=== PATIENT | male | born 1975 | race Two or more races ===

== ENCOUNTER 2018-07-24 18:43 | Inpatient (IN) | payer OTHER ==
[~2018-07-24] VITALS: Ht 172.7 cm; Wt 71.2 kg
--- NOTE | 2018-07-24 18:46 | NUR ---
PT STEVEN FROM [facility] FOR [facility], ACTING BIZARRE, PT NOT ANSWERING QUESTIONS APPROPRIETLY, RESPIRATIONS EVEN AND UNLABORED, NO SOB, NAD NOTED, VSS, PT ON MONITOR, PENDING ER PROVIDER FARTUN
[2018-07-24] MEDS ORDERED: OLANZAPINE 10 MG VIAL IM ONE ×4 (19:00→23:32)
[2018-07-24] MEDS ORDERED: INSU100I26 SQ (19:13)
[2018-07-24] MEDS ORDERED: MINO100T PO (19:13)
[2018-07-24] MEDS ORDERED: INSU100I14 SQ (19:13)
[2018-07-24] MEDS ORDERED: PREG100C PO (19:13)
[2018-07-24] MEDS ORDERED: ONDA4TAB5 PO (19:13)
[2018-07-24] MEDS ORDERED: APIX5TAB PO (19:13)
[2018-07-24 19:17] LABS: BASOPHILS # (AUTO) 0.1 /CMM (0.0-0.2); BASOPHILS % (AUTO) 0.7 % (0.0-2.0); EOSINOPHILS % (AUTO) 1.3 % (0.0-6.0); HEMATOCRIT 31 % (39-51); HEMOGLOBIN 10.4 g/dL (13.5-17.5); LYMPHOCYTES # (AUTO) 0.9 /CMM (0.8-4.8); LYMPHOCYTES % (AUTO) 11.7 % (20.0-44.0); MEAN CORPUSCULAR HGB CONC 34 g/dl (31.0-36.0); MEAN CORPUSCULAR VOLUME 82 fL (80-96); MONOCYTES # (AUTO) 0.8 /CMM (0.1-1.30); MONOCYTES % (AUTO) 10.2 % (2.0-12.0); NEUTROPHILS # (AUTO) 6.1 /CMM (1.8-8.9); NEUTROPHILS % (AUTO) 76.1 % (43.0-81.0); PLATELET COUNT (AUTO) 530 /CMM (150-450); RED BLOOD CELL COUNT(AUTO) 3.76 MIL/uL (4.5-6.0)
[2018-07-24 19:28] LABS: CARBON DIOXIDE 22 mmol/L (21-32); CHLORIDE 97 mmol/L (98-107); CREATININE 1.1 mg/dL (0.6-1.3); GLUCOSE 143 mg/dL (74-106); POTASSIUM 4.1 mmol/L (3.5-5.1); SODIUM SERUM 134 mmol/L (136-145); UREA NITROGEN, BLOOD 31 mg/dL (7-18)
[2018-07-24] MEDS ORDERED: PIPERACILLIN /TAZOBACTAM 3.375 G in IV D5W 50 ML IV ONE (19:30)
[2018-07-24] MEDS ORDERED: VANCOMYCIN 1 GM in IV D5W 250 ML IV ONE (19:30)
--- NOTE | 2018-07-24 19:30 | NUR ---
PT AGITATED AND VERY RESTLESS, DR. COSTELLO WITH NEW ORDERS FOR ZYPREXA IM.
[2018-07-24 19:33] LABS: ALANINE AMINOTRANSFERASE 43 U/L (12-78); ALBUMIN 3.1 g/dL (3.4-5.0); ALCOHOL, BLOOD < 3 mg/dL (0-0); ALKALINE PHOSPHATASE 142 U/L (46-116); ASPARTATE AMINOTRANSFERASE 29 U/L (15-37); BILIRUBIN,DIRECT 0.2 mg/dL (0.0-0.2); BILIRUBIN,TOTAL 0.6 mg/dL (0.2-1.0); SALICYLATE 3.6 mg/dL (2.8-20.0); TOTAL PROTEIN, SERUM 8.9 g/dL (6.4-8.2)
[2018-07-24] MEDS ORDERED: VANCOMYCIN 1 GM VIAL ONE (19:33)
[2018-07-24] MEDS ORDERED: PIPERACILLIN /TAZOBACTAM 3.375 G VIAL IV ONE (19:33)
[2018-07-24 19:34] LABS: ACETAMINOPHEN < 2 ug/ml (10-30)
--- NOTE | 2018-07-24 19:40 | NUR ---
PT PULLED OUT IV, RESTARTED NEW PIV ON LEFT FOREARM
--- NOTE | 2018-07-24 23:30 | NUR ---
CALLED DR. GASTON FOR ADMISSION AND STATES "[employer] DOES NOT COVER TEST TUBE MAKER; SO CALL STRUCTURAL STEEL FITTER AND ASK HER TO FIND OUT WHERE THE PT HAD SURGERY SO THAT HE CAN GO BACK THERE". CM CALLED, MESSAGE LEFT AND DR. DINH NOTIFIED.
--- NOTE | 2018-07-24 23:41 | NUR ---
PT STILL VERY RESTLESS AT THIS TIME, DR DINH AWARE, WITH NEW ORDERS FOR ZYPREXA IM 2ND DOSE GIVEN
--- NOTE | 2018-07-25 00:03 | NUR ---
NURSING SUP CALLED; 323-2
--- NOTE | 2018-07-25 00:24 | NUR ---
PT CALM AND COOPERATIVE AT THIS TIME. PT STILL UNABLE TO GIVE URINE SAMPLE
--- NOTE | 2018-07-25 00:25 | NUR ---
[facility] MOTOR BLOCK MECHANIC CALLED BACK AND STATED "MY EQUIP MAINT ENG THE CHEMICALS FERMENTATION OPERATOR STATES "THE [facility] INSURANCE WITH 100% PAY FOR BRIDGER RICK PHLEBOTOMY TECH". DR. GASTON NOTIFIED AND ABLE TO ADMIT PT.
--- NOTE | 2018-07-25 00:26 | NUR ---
CONTENT ENGINEER CALLED [facility].
--- NOTE | 2018-07-25 00:41 | NUR ---
REPORT GIVEN TO JACINTO FAN FOR AIDA
--- NOTE | 2018-07-25 01:06 | NUR ---
RN NOTES: UNABLE TO OBTAIN VITAL SIGN PT REFUSING, AND APPEARS READY TO HIT STAFF WHEN TOUCH
--- NOTE | 2018-07-25 01:11 | NUR ---
PT TRANSFERRED TO BED 323-2 VIA ACLS PROTOCOL
[2018-07-25] MEDS ORDERED: *INSULIN REGULAR(HUMULIN R)HUM 100 UNIT/ML VIAL SQ PRN (01:30)
[2018-07-25] MEDS ORDERED: ACETAMINOPHEN 325 MG TABLET PO PRN (01:30)
[2018-07-25] MEDS ORDERED: DEXTROSE 50%-WATER 50 ML DISP.SYRIN IV PRN (01:30)
[2018-07-25] MEDS ORDERED: HYDROMORPHONE 1 MG/1 ML DISP.SYRIN IV PRN (01:30)
[2018-07-25] MEDS ORDERED: ALPRAZOLAM 0.25 MG TABLET PO PRN (01:30)
[2018-07-25] MEDS ORDERED: ONDANSETRON HCL/PF 4 MG/2 ML VIAL IV PRN (01:30)
--- NOTE | 2018-07-25 01:45 | NUR ---
RN NOTES: RECEIVED CALL FROM YONAS RANGEL PER DR GASTON, TO CONTINUE ALL HOME MEDS
[2018-07-25] MEDS ORDERED: PIPERACILLIN /TAZOBACTAM 3.375 G in IV D5W 50 ML IV ONE (02:00)
--- NOTE | 2018-07-25 02:00 | NUR ---
RN NOTES: UNABLE TO OBTAIN PERTINENT INFORMATION,PT UNCOOPERATIVE, REFUSED TO ANSWER QUESTIONS, COVERED HIS FACE WITH BLANKET, ALL INFORMATION USED FOR FILLING/COMPLETING ADMISSION DOCUMENTATION OBTAINED FROM ER REPORT/SUMMARY REPORT. MANUAL MACHINIST MADE AWARE
--- NOTE | 2018-07-25 02:01 | NUR ---
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 INFORMED THAT WHEN PT RECEIVED IN THE UNIT THESE TWO WEREN'T FOUND, PER JACKSON HE WILL CHECK IN ER.
[2018-07-25] MEDS ORDERED: PIPERACILLIN /TAZOBACTAM 3.375 G VIAL IV ONE (02:48)
--- NOTE | 2018-07-25 03:19 | NUR ---
MSRN ABLE TO CONNECT PATIENT TO [facility]OS[facility]. CAN BE COMBATIVE ANY MINUTE. CLOSELY WATCHED.
--- NOTE | 2018-07-25 06:49 | NUR ---
MSRN REFUSED TO BE DISTURBED.. RESISTIVE TENDS TO BE COMBATIVE, UNCOOPERATIVE AT THIS TIME. UNABLE TO CHECK BLOOD SUGAR. WILL ENDORSE TO INCOMING RN
--- NOTE | 2018-07-25 07:02 | NUR ---
MS RN OPENING NOTE RECEIVED PATIENT IN BED. SLEEPING, EASILY AROUSED WITH VERBAL STIMULI. ON ROOM AIR. IN NO APPARENT DISTRESS OR DISCOMFORT AT THIS TIME. RESPIRATIONS EVEN AND UNLABORED. PATIENT GOT AGITATED FROM BEING WOKEN UP. UNCOOPERATIVE. DOES NOT ANSWER TO QUESTIONS. PATIENT DOES NOT ALLOW ASSESSMENT. BECOMES COMBATIVE. PER NIGHT RN PATIENT HAS L FA 20G IVC, SL. UNABLE TO ASSESS PATENCY. SAFETY MEASURES IN PLACE, BED IN LOW LOCKED POSITION, SIDE RAILS UP X2, CALL LIGHT WITHIN EASY REACH. WILL CONTINUE TO MONITOR.
[2018-07-25] MEDS: BLOOD SUGAR DIAGNOSTIC 1 EACH STRIP VI SCH ×4 (07:30→21:15)
[2018-07-25] MEDS ORDERED: FEE PK DOSING 1 MIN EA MC ONE (07:41)
[2018-07-25 08:00] VITALS: BP 106/62
[2018-07-25] MEDS ORDERED: VANCOMYCIN 1 GM in IV D5W 250 ML IV ONE (08:00)
[2018-07-25] MEDS ORDERED: APIXABAN 5 MG TABLET PO SCH (09:00)
--- NOTE | 2018-07-25 09:00 | NUR ---
PER DR. GASTON OBTAIN PSYCHIATRIC CONSULTATION, OBTAIN STAGE DRIVER CONSULTATION. PER DR. GASTON PATIENT WILL BE SEEN BY APPLICATION INTEGRATION SPECIALIST. INFORMED THE PHYSICIAN THAT PATIENT IS NON-COMPLIANT WITH TREATMENT AND PLAN OF CARE. NO FURTHER ORDERS REGARDING THAT MATTER. WILL CONTINUE TO MONITOR AT THIS TIME.
[2018-07-25] MEDS: PREGABALIN 100 MG CAPSULE PO SCH ×3 (09:19→17:00)
[2018-07-25] MEDS: ELIQUIS 5 MG PO SCH ×2 (09:19→17:00)
--- NOTE | 2018-07-25 09:30 | NUR ---
FAXED PATIENT'S FACE SHEET TO [facility] FOR PSYCHIATRIC EVALUATION. PATIENT WILL BE SEEN BY DR. LEAL. AWAITING EVALUATION AT THIS TIME.
--- NOTE | 2018-07-25 09:30 | NUR ---
PATIENT WAS NOTED TO HAVE SOME BLEEDING FROM RIGHT FOOT WOUND. NO DRESSING PRESENT CURRENTLY PATIENT REFUSED EARLIER. PATIENT ONLY ALLOWED TO CLEANED WITH NS, APPLY GAUZE AND WRAP WITH KERLIX. WOUND CONSULT REQUESTED. AWAITING PODIATRY CONSULT AT THIS TIME.
[2018-07-25] MEDS: PIPERACILLIN /TAZOBACTAM 3.375 G in IV D5W 50 ML IV SCH ×3 (10:57→23:29)
[2018-07-25] MEDS: INSULIN ASPART/LISPRO 100 UNIT/ML CARTRIDGE SQ SCH ×2 (11:41→17:05)
--- NOTE | 2018-07-25 12:00 | NUR ---
PATIENT REFUSED ACCU-CHECK. UNABLE TO ADMINISTER INSULIN AT THIS TIME. RISKS AND BENEFITS EXPLAINED. PATIENT HAS POOR CONCENTRATION, UNCOOPERATIVE. KEEPS CUTTING OFF AND REDIRECTING THE CONVERSATION TO PERSONAL MATTERS REGARDING HIS CREDIT CARD. PATIENT GET AGITATED AND AT TIMES COMBATIVE. NON-COMPLIANT AND UNCOOPERATIVE WITH TREATMENT. ALLOWS SOME TREATMENT SELECTIVELY. MD WAS MADE AWARE OF PATIENT.S BEHAVIOR. WILL CONTINUE TO MONITOR AT THIS TIME.
--- NOTE | 2018-07-25 12:00 | NUR ---
PATIENT REFUSED ACCU-CHECK. PATIENT IS NON COMPLIANT WITH TREATMENT PLAN. REFUSES TO BE CLEANED AND ASSESSED. REFUSES PHOTOGRAPHS. STATES HE DOES NOT NEED IT HE IS GOING TO GO SOON. ALL RISKS AND BENEFITS EXPLAINED. MD AWARE. WEB CONTENT WRITER AWARE OF PATIENT'S DESIRE TO BE TRANSFERRED TO A DIFFERENT HOSPITAL. PATIENT DOES NOT PROVIDE A SPECIFIC REASON TO WHY HE WANTS TO LEAVE. WILL CONTINUE TO MONITOR AT THIS TIME.
[2018-07-25] MEDS: VANCOMYCIN 0.75 GM in IV D5W 250 ML IV SCH (15:23)
[2018-07-25 16:00] VITALS: BP 109/68
[2018-07-25] MEDS: INSULIN REGULAR, HUMAN 100 UNIT/ML 3 ML VIAL SQ PRN (17:03)
--- NOTE | 2018-07-25 18:30 | NUR ---
MS RN CLOSING NOTE PATIENT IN BED. ALERT ORIENTED X2-3. ON ROOM AIR. IN NO APPARENT DISTRESS OR DISCOMFORT AT THIS TIME. RESPIRATIONS EVEN AND UNLABORED. DENIES PAIN AND SOB. PATIENT IS NON-COMPLIANT AND UNCOOPERATIVE. DOES NOT ANSWER TO QUESTIONS. KEEPS TAKING ABOUT HIS PERSONAL ISSUES. PATIENT DOES NOT ALLOW FULL BODY ASSESSMENT, GETS AGITATED AND COMBATIVE, TRYING TO KICK AND HIT THE STAFF. PATIENT HAS L FA 20G IVC, SL. PATENT AND INTACT. ALLOWS CARE ONLY WHEN HE FEELS LIKE IT. FREQUENT MOOD SWINGS AND BEHAVIORAL ESCALATIONS OBSERVED. PATIENT KEPT COMFORTABLE, SAFETY MEASURES IN PLACE, BED IN LOW LOCKED POSITION, SIDE RAILS UP X2, CALL LIGHT WITHIN EASY REACH. WILL ENDORSE TO PM NURSE FOR AIDA.
--- NOTE | 2018-07-25 19:10 | NUR ---
PATIENT REPORTED HAVING PAIN IN RIGHT FOOT 01/26. ASKING FOR PAIN MEDICATION. PULLED OUT AND SCANNED NORCO 5MG-325MG TO ADMINISTER FOR PAIN MANAGEMENT. WHEN TOOK THE MEDICATION TO THE PATIENT HE REFUSED, STATING HE DOES NOT WANT TO TAKE IT. MEDICATION WAS WASTED PER PROTOCOL, RECORDED WASTE IN OMNICELL AND WAS WITNESSED WITH KASSIE CASEY.
[2018-07-25] MEDS: HYDROCODONE/APAP 5/325MG 1 EACH TABLET PO PRN ×3 (19:14→21:12)
--- NOTE | 2018-07-25 19:45 | NUR ---
RN OPENING NOTES RECEIVED REPORT FROM DAYSHIFT JACINTO HINSON. FOUND Pt AWAKE, RESTING IN BED. NO S/S OF ACUTE DISTRESS OR SOB NOTED. RESPIRATIONS EVEN AND UNLABORED. Pt IS A/OX3, VERBAL, ABLE TO MAKE NEEDS KNOWN; PER REPORT IS EASILY AGITATED AND HAS BEEN UNCOOPERATIVE SINCE ADMISSION AND HAS BEEN REFUSING CARE AND SKIN ASSESSMENT AND PICTURES. IV ACCESS ON LFA #20G, SL. SAFETY MEASURES IN PLACE. BED LOW, LOCKED, HOB ELEVATED, SIDE RAILS UP, CALL LIGHT AND BEDSIDE TABLE WITHIN REACH. WILL CONTINUE TO MONITOR Pt's CONDITION AND SAFETY THROUGHOUT THE NIGHT.
[2018-07-25 20:00] VITALS: BP 124/76
[2018-07-25] MEDS: INSULIN GLARGINE, 100 UNIT/ML CARTRIDGE SQ SCH (21:32)
--- NOTE | 2018-07-25 22:00 | NUR ---
RN NOTES HS ACCUCHECK 156. ADMINISTERED SCHEDULED DOSE OF LANTUS 22UN. Pt DID NOT WANT ADDITIONAL COVERAGE.
--- NOTE | 2018-07-25 23:05 | NUR ---
RN NOTES Pt IS BECOMING MORE COMPLIANT. ALLOWED FOR PICTURE TO BE TAKEN OF HIS RT FOOT WOUND. WAS ABLE TO COLLECT WOUND CULTURE OF Pt's RT FOOT WOUND. CLEANED RT FOOT WITH STERILE NS. COVERED WITH ABD PAD & WRAPPED FOOT WITH KERLIX. Pt PROVIDED HIS OWN TRICIA WRAP BANDAGE THAT HE ALSO WANTED WRAPPED AROUND THE DRESSING. TOLD DIRECTIONAL DRILLER THAT Pt IS MORE COMPLIANT. WILL TRY FOR PODIATRY AND WOUND CONSULT AGAIN.
--- NOTE | 2018-07-26 00:58 | NUR ---
RN NOTES Pt IS NOW REQUESTING FOR A SLEEPING PILL & IS REQUESTING FOR ATIVAN INSTEAD OF XANAX. SPOKE WITH DR GASTON ON THE PHONE. GAVE ORDER FOR AMBIEN 5MG PO HS, AND ATIVAN 1MG PO Q6H PRN. WILL DC XANAX.
[2018-07-26] MEDS: VANCOMYCIN 0.75 GM in IV D5W 250 ML IV SCH ×2 (01:06→08:12)
[2018-07-26] MEDS ORDERED: ZOLPIDEM TARTRATE 5 MG TABLET PO PRN (01:30)
[2018-07-26] MEDS ORDERED: LORAZEPAM 1 MG TABLET PO PRN (01:30)
[2018-07-26] MEDS: PIPERACILLIN /TAZOBACTAM 3.375 G in IV D5W 50 ML IV SCH ×4 (06:08→23:10)
[2018-07-26] MEDS: INSULIN ASPART/LISPRO 100 UNIT/ML CARTRIDGE SQ SCH ×3 (06:45→17:59)
--- NOTE | 2018-07-26 06:45 | NUR ---
RN NOTES AC ACCUCHECK BG 253. ADMINISTERED SCHEDULED NOVOLOG 3UN AND GAVE ADDITIONAL INSULIN COVERAGE OF 9UN REGULAR INSULIN. Pt IS EATING WELL.
[2018-07-26] MEDS: INSULIN REGULAR, HUMAN 100 UNIT/ML 3 ML VIAL SQ PRN (06:48)
[2018-07-26] MEDS: BLOOD SUGAR DIAGNOSTIC 1 EACH STRIP VI SCH ×4 (06:57→22:00)
--- NOTE | 2018-07-26 07:20 | NUR ---
PT RECEIVED A&0X3, PLEASANT AND ENGAGING BUT UNINTERESTED IN DISCUSSING CARE, RESTING IN BED PLAYING ON PHONE, PT TOLERATING ROOM AIR WITHOUT DISTRESS, PT REPORTS MODERATE PAIN TO R FOOT, DRESSING CLEAN AND INTACT. PT IVC AT L FA DISCONNECTED BY PT TO USE BATHROOM, IV RESTARTED AND PT REQUESTED TO CALL FOR ASSISTANCE. PT BED IN LOWEST LOCKED POSITION WITH HANDRAILSX2 AND CALL FLEMING WITHIN REACH. PT REFUSING FURTHER SKIN ASSESSMENT BUT DENIES SYMPTOMS, PT STATES OK TO SEE MD R/T FOOT CARE. PT WITH COMPLAINT AT THIS TIME.
--- NOTE | 2018-07-26 07:38 | NUR ---
RN CLOSING NOTES NO SIGNIFICANT CHANGES IN Pt's CONDITION. Pt IS STABLE AT THIS TIME. NO S/S OF ACUTE DISTRESS OR SOB NOTED DURING THE NIGHT. ALL NEEDS MET AND ATTENDED TO. Pt IS AWAKE RESTING IN BED, RESPIRATIONS EVEN AND UNLABORED. SAFETY MEASURES IN PLACE. Pt IS BECOMING MORE COMPLIANT WITH CARE. ENDORSED TO DAYSHIFT RN FOR Pt's AIDA.
[2018-07-26 07:52] LABS: EOSINOPHILS % (AUTO) 6.8 % (0.0-6.0); HEMATOCRIT 27 % (39-51); HEMOGLOBIN 9.2 g/dL (13.5-17.5); LYMPHOCYTES # (AUTO) 1.1 /CMM (0.8-4.8); LYMPHOCYTES % (AUTO) 25.5 % (20.0-44.0); MEAN CORPUSCULAR HGB CONC 34 g/dl (31.0-36.0); MEAN CORPUSCULAR VOLUME 82 fL (80-96); MONOCYTES # (AUTO) 0.6 /CMM (0.1-1.30); NEUTROPHILS # (AUTO) 2.2 /CMM (1.8-8.9); NEUTROPHILS % (AUTO) 52.7 % (43.0-81.0); PLATELET COUNT (AUTO) 371 /CMM (150-450); RED BLOOD CELL COUNT(AUTO) 3.29 MIL/uL (4.5-6.0); WHITE BLOOD COUNT (AUTO) 4.2 K/uL (4.3-11.0)
[2018-07-26 07:53] LABS: CALCIUM, SERUM 8.1 mg/dL (8.5-10.1); CREATININE 1.1 mg/dL (0.6-1.3); POTASSIUM 3.8 mmol/L (3.5-5.1)
[2018-07-26 08:00] VITALS: BP 127/78
[2018-07-26] MEDS: ELIQUIS 5 MG PO SCH ×2 (08:19→16:20)
[2018-07-26] MEDS: HYDROMORPHONE INJ 2 MG/ML DISP.SYRIN IV PRN ×3 (08:20→18:32)
[2018-07-26] MEDS: PREGABALIN 100 MG CAPSULE PO SCH ×3 (08:20→16:16)
[2018-07-26] MEDS: OLANZAPINE 5 MG TABLET PO SCH ×2 (09:00→16:16)
[2018-07-26] MEDS: HYDROCODONE/APAP 5/325MG 1 EACH TABLET PO PRN ×3 (10:31→20:19)
--- NOTE | 2018-07-26 10:56 | NUR ---
MSRNataliia. PT WITH COMPLAINT FO NECK PAIN, PRN TYLENOL AND HEAT PACK APPLIED. Addendum: 07/26/18 at 1132 by OMAIRA MORSE RN WRONG PT
--- NOTE | 2018-07-26 10:59 | NUR ---
PT WITH MULTIPLE CONCERNS R/T TO HOUSING. SW PRESENT FOR RVX2. Addendum: 07/26/18 at 1134 by OMAIRA MORSE RN WRONG PT
--- NOTE | 2018-07-26 12:04 | NUR ---
Social service consult requested by Dr. Berger for homelessness. Pt. is a 43 year old male who was admitted to [facility] for osteomyelitis of right foot. Pt. is alert and oriented x 4. Pt. is not very cooperative with SW. Pt. states, "I am going to a half-way facility for rehab for my foot, if you cannot help with that, then I do not want to talk to you." SW informed pt. she will relay his message to the employment case manager.
[2018-07-26 16:00] VITALS: BP_SYST 127; BP_SYST 130; BP_DIAS 70; BP_DIAS 78
[2018-07-26] MEDS: VANCOMYCIN 500 MG in IV D5W 100 ML IV SCH (16:15)
--- NOTE | 2018-07-26 18:30 | NUR ---
PT REMAINS REFUSING SLIDING SCALE.
--- NOTE | 2018-07-26 18:37 | NUR ---
PT REMAINS A&0X3, COOPERATIVE, TALKATIVE BUT NEGATIVE TOWARDS CARE, OFTEN IRRITABLE AND SHOUTING ON PHONE. PT TOLERATING ROOM AIR WITHOUT DISTRESS. PT REPORTS ADEQUATE PAIN MANAGEMENT DURING SHIFT. R FOOT WOUND CARE COMPLETED BY MD, DRESSING CLEAN AND INTACT. PT IVC AT L FA INTACT AND SALINE FLUSH PATENT. PT BED IN LOWEST LOCKED POSITION WITH HANDRAILSX2 AND CALL FLEMING WITHIN REACH. ALL DAY NURSE DUTIES ATTENDED TO AND PT IS WITHOUT COMPLAINT AT THIS TIME. WILL ENDORSE TO NIGHT NURSE AT BEDSIDE FOR AIDA.
[2018-07-26 20:00] VITALS: BP 117/72
--- NOTE | 2018-07-26 20:46 | NUR ---
MS RN NOTES RECEIVED PATIENT AWAKE IN BED AND WATCHING TV WITH NO DISTRESS NOTED. CALL LIGHT WITHIN REACH. NO C/O PAIN OR DISCOMFORT. PERIPHERAL IV INTACT AND PATENT. BED IN LOW LOCK SETTING. ALL BELONGINGS KEPT NEAR BEDSIDE. WILL CONTINUE TO MONITOR.
[2018-07-26] MEDS: INSULIN GLARGINE, 100 UNIT/ML CARTRIDGE SQ SCH (22:00)
[2018-07-27] MEDS: VANCOMYCIN 500 MG in IV D5W 100 ML IV SCH ×4 (00:09→23:37)
[2018-07-27] MEDS: HYDROMORPHONE INJ 2 MG/ML DISP.SYRIN IV PRN ×3 (04:48→16:42)
[2018-07-27] MEDS: PIPERACILLIN /TAZOBACTAM 3.375 G in IV D5W 50 ML IV SCH ×4 (05:16→23:16)
[2018-07-27 06:29] LABS: POTASSIUM 4.4 mmol/L (3.5-5.1)
[2018-07-27] MEDS: INSULIN REGULAR, HUMAN 100 UNIT/ML 3 ML VIAL SQ PRN ×2 (06:29→17:27)
[2018-07-27] MEDS: INSULIN ASPART/LISPRO 100 UNIT/ML CARTRIDGE SQ SCH ×3 (06:30→17:23)
--- NOTE | 2018-07-27 06:55 | NUR ---
MS RN CLOSING NOTES PATIENT AWAKE IN BED AND WATCHING TV WITH NO DISTRESS NOTED. CALL LIGHT WITHIN REACH. NO FURTHER C/O PAIN OR DISCOMFORT. PATIENT REFUSED HS SUGAR CHECK AND LANTUS DESPITE EXPLANATION OF RISKS/BENEFITS X3. VITALS REMAIN WNL. BED IN LOW LOCK SETTING. ALL BELONGINGS KEPT NEAR BEDSIDE. WILL ENDORSE TO ONCOMING SHIFT.
--- NOTE | 2018-07-27 07:30 | NUR ---
PT REMAINS A&0X3, NEGATIVE TOWARDS CARE. PT TOLERATING ROOM AIR WITHOUT DISTRESS. PT REPORTS R FOOT PAIN 10/10, DRESSING CLEAN AND INTACT. PT IVC AT L FA INTACT AND SALINE FLUSH PATENT. PT BED IN LOWEST LOCKED POSITION WITH HANDRAILSX2 AND CALL FLEMING WITHIN REACH. PT BRIEFED ON POC AND IS WITHOUT CONCERN OR COMPLAINT AT THIS TIME.
[2018-07-27] MEDS: BLOOD SUGAR DIAGNOSTIC 1 EACH STRIP VI SCH ×4 (07:45→21:51)
[2018-07-27 08:00] VITALS: BP 114/74
[2018-07-27] MEDS: OLANZAPINE 5 MG TABLET PO SCH ×2 (08:14→16:42)
[2018-07-27] MEDS: HYDROCODONE/APAP 5/325MG 1 EACH TABLET PO PRN (08:14)
[2018-07-27] MEDS: PREGABALIN 100 MG CAPSULE PO SCH ×3 (08:14→16:42)
[2018-07-27] MEDS: ELIQUIS 5 MG PO SCH ×2 (08:16→16:41)
--- NOTE | 2018-07-27 08:21 | NUR ---
WOUND CARE CONSULT WOUND CARE RECEIVED CONSULT FOR RIGHT FOOT OM. WOUND CARE WILL DEFER CONSULT AND TREATMENT PLAN TO DPM DR MARTINEZ WHO IS CURRENTLY FOLLOWING THIS PATIENT. PT WITH HILARY AT 18. ALL PRESSURE ULCER PREVENTION MEASURES ARE NOTED TO BE IN PLACE AT THIS TIME. WILL SEE PRN.
--- NOTE | 2018-07-27 12:00 | NUR ---
PT ORDERED VAPORIZER PRODUCTS TO BE DELIVERED. ITEMS CONTAINING NICOTINE CONFISCATED AND SUBMITTED TO PHARMACY PER CHARGE NURSE [id number]. PT DENIES HAVE VAPORIZER. PT YELLING AND HOSTILE TOWARDS STAFF.
[2018-07-27 16:00] VITALS: BP 149/87
[2018-07-27] MEDS: LACTOBACILLUS RHAMNOSUS GG 1 EACH CAP.SPRINK PO SCH (16:42)
--- NOTE | 2018-07-27 17:30 | NUR ---
PT REQUESTING TO GO SMOKE WITH RE ETCHER, PT TOLD HE MUST GIVE STAFF THE VAPORIZER AFTER. PT AGREEABLE.
--- NOTE | 2018-07-27 18:00 | NUR ---
PT PROVIDED VAPORIZER, BAGGED LABELLED IN NURSING STATION CIGARETTE DRAW.
--- NOTE | 2018-07-27 19:00 | NUR ---
PT REMAINS A&0X3, REMAINS NEGATIVE TOWARDS CARE. PT TOLERATING ROOM AIR WITHOUT DISTRESS. PT ADEQAUTE PAIN MANAGEMENT DURING SHIFT TO R FOOT PAIN 10/10, DRESSING CLEAN AND INTACT, PT REFUSED DRESSING CHANGEX3. PT IVC AT L FA INTACT AND SALINE FLUSH PATENT. PT BED IN LOWEST LOCKED POSITION WITH HANDRAILSX2 AND CALL FLEMING WITHIN REACH. ALL DAY NURSE DUTIES ALLOWED COMPLETED. ENDORSED TO NIGHT NURSE AT BEDSIDE FOR AIDA.
[2018-07-27 20:00] VITALS: BP 157/105
[2018-07-27] MEDS ORDERED: INSULIN GLARGINE, 100 UNIT/ML CARTRIDGE SQ SCH (22:00)
--- NOTE | 2018-07-27 22:00 | NUR ---
MS RN NOTES: BLOOD SUGAR WAS 157. 2 UNITS OF INSULIN WAS ADMINISTERED. PT REFUSED GLARGINE 26 UNITS. PT SAID HE IS ALREADY ON REGULAR INSULIN. PT WAS ALREADY ADMINISTERED 2 UNITS. PT REFUSING TO HAVE GLARGINE 26 UNITS AFTER EXPLAINING X 3. WILL CONTINUE TO MONITOR.
[2018-07-28] MEDS: PIPERACILLIN /TAZOBACTAM 3.375 G in IV D5W 50 ML IV SCH ×3 (05:00→14:53)
[2018-07-28 05:15] VITALS: BP 153/76
[2018-07-28 05:50] VITALS: BP 154/56
--- NOTE | 2018-07-28 05:55 | NUR ---
MS RN NOTES: OFFERED TO PERFORM WOUND TX ON R FOOT. PT REFUSED.WHEN ASKED, PT APPEARS TO BE AGITATED AND PLAYS MUSIC LOUDER AND LOOKS AT ME WITH A BLANK FACE.
[2018-07-28] MEDS: BLOOD SUGAR DIAGNOSTIC 1 EACH STRIP VI SCH ×3 (06:15→18:07)
[2018-07-28] MEDS: INSULIN REGULAR, HUMAN 100 UNIT/ML 3 ML VIAL SQ PRN ×2 (06:49→12:24)
[2018-07-28] MEDS: INSULIN ASPART/LISPRO 100 UNIT/ML CARTRIDGE SQ SCH ×2 (06:52→12:23)
--- NOTE | 2018-07-28 06:57 | NUR ---
MS RN NOTES: BLOOD SUGAR THIS AM WAS 214. 6 UNITS OF INSULIN WAS ADMINISTERED. IN ADDITION 3 UNITS OF INSULIN WAS ADMINISTERED ORDERED. JUICES AND SNACKS PROVIDED AT BEDSIDE.
--- NOTE | 2018-07-28 07:03 | NUR ---
MS RN CLOSING NOTES: ALL NEEDS WERE ATTENDED AND ANTICIPATED FOR. PT IN BED AWAKE AND ON HIS PHONE EITHER LISTENING TO MUSIC OR BROWSING. IV REMAINS INTACT. CURRENTLY H/L. PT APPEARS TO BE A/OX2 AND HAS DELAYED PROCESSING. PT APPEARS TO BE AGITATED WHEN ASKED ABOUT WOUND CARE FOR HIS R FOOT. R FOOT DRESSING APPEARS TO BE CLEAN AND DRY. BED KEPT IN LOW, LOCKED POSITION, AND SIDE RAILS X 2UP. INSULIN ADMINISTERED THIS AM AND SNACKS PROVIDED. WILL ENDORSE TO AM NURSE FOR AIDA.
--- NOTE | 2018-07-28 07:30 | NUR ---
received pt. in am alert and oriented x2-3.very flat affect.blank expression on face most of time when spoken to.hep lock intact. dressing to rt. foot intact.
[2018-07-28 07:57] LABS: CALCIUM, SERUM 8.9 mg/dL (8.5-10.1); CREATININE 0.9 mg/dL (0.6-1.3); POTASSIUM 3.9 mmol/L (3.5-5.1)
[2018-07-28 08:00] VITALS: BP 142/98
[2018-07-28] MEDS: VANCOMYCIN 500 MG in IV D5W 100 ML IV SCH (08:45)
[2018-07-28] MEDS: ELIQUIS 5 MG PO SCH ×3 (09:00→16:45)
[2018-07-28] MEDS: LACTOBACILLUS RHAMNOSUS GG 1 EACH CAP.SPRINK PO SCH ×3 (09:00→16:45)
[2018-07-28] MEDS: OLANZAPINE 5 MG TABLET PO SCH ×3 (09:00→16:46)
[2018-07-28] MEDS: PREGABALIN 100 MG CAPSULE PO SCH ×4 (09:00→16:45)
--- NOTE | 2018-07-28 09:45 | NUR ---
refused all am meds.
--- NOTE | 2018-07-28 11:00 | NUR ---
contacted by [facility] pt. to be dc'd today.
--- NOTE | 2018-07-28 12:42 | NUR ---
pt. refused lyrica med at 0930 am.unable to waste in computer.val[facility] pharmacist contacted and aware rn to waste with floor rn dilshad donaldson [facility] manord[facility]ad as witness to waste.
--- NOTE | 2018-07-28 15:00 | NUR ---
contacted facility multiple times and iv removed,but no bed available. now iv reinserted.lt. forearm,#22 angio.pt. tolerated well. wd care to rt. foot. dc photos taken.rn spoke to lining caser. several times.
--- NOTE | 2018-07-28 15:30 | NUR ---
new facility assigned to pt. report called to sahra mcconnell.aware of med status and new rxs.belonging sheet and all papers signed with 2 rn's. pt. refusing to sign.
[2018-07-28 16:00] VITALS: BP 164/92
--- NOTE | 2018-07-28 16:00 | NUR ---
wound rt. foot measures 4.5 cm ht and 7cm length.depth utd.has scant to small amt. dried sanguinous drainage.
--- NOTE | 2018-07-28 16:46 | NUR ---
pt. refusing late afternoon oral meds.
--- NOTE | 2018-07-28 18:00 | NUR ---
pt. did not eat dinner so insulins not given.
--- NOTE | 2018-07-28 18:05 | NUR ---
ambulance here.hep lock out. bandage to site.report to drivers.given all papers and pt. transported to facility with belongings.
[2018-07-28] MEDS ORDERED: AMOX/CLAVULANATE 875 MG TABLET PO SCH (21:00)
== END 2018-07-28 18:00 | DRG 317 ==
LOC: ER 18:44 → MED 07-25 00:36
PROVIDERS: ADMIT Internal Medicine; ATTEND Internal Medicine
PROC: 0KBV0ZZ Excision of Right Foot Muscle, Open Approach (ICD-10-PCS; principal; 2018-07-26)
DX: E11.69 Type 2 diabetes mellitus with other specified complication (principal); M86.8X7 Other osteomyelitis, ankle and foot; E11.42 Type 2 diabetes mellitus with diabetic polyneuropathy; E11.621 Type 2 diabetes mellitus with foot ulcer; F20.0 Paranoid schizophrenia; B35.1 Tinea unguium; F15.10 Other stimulant abuse, uncomplicated; L97.519 Non-pressure chronic ulcer of other part of right foot with unspecified severity; Z59.0 Homelessness; Z86.718 Personal history of other venous thrombosis and embolism; Z89.421 Acquired absence of other right toe(s); Z79.4 Long term (current) use of insulin; Z79.01 Long term (current) use of anticoagulants; Z83.3 Family history of diabetes mellitus
CPT/HCPCS: 36415; 73590-TC; 73620-TC; 80048-TC; 80076-TC; 80202-TC; 82962-TC; 83605-TC; 85025-TC; 87040-TC; 87070-TC; 87081-TC; 87186-TC; A6253; A6402; A6403; A6407; G0378; G0480; J1170; J1815; J2543; J3370; J3490; J7050; J7060